=== PATIENT | male | born 1945 | race Caucasian/White ===

== ENCOUNTER 2019-01-10 07:55 | Emergency (ER) | payer OTHER ==
[~2019-01-10] VITALS: Ht 177.8 cm; Wt 113.4 kg
[2019-01-10 09:02] LABS: Basophils # (auto) 0.1 uL; Eosinophils # (auto) 0.2 uL; Eosinophils % (auto) 4.5 % (0.0-7.0); Hematocrit 45.9 % (41.0-53.0); Hemoglobin 15.6 g/dL (13.5-17.5); Lymphocytes # (auto) 1.3 uL; Lymphocytes % (auto) 23.5 % (10.0-50.0); Mean Corpuscular Hemoglobin 30.6 pg (28.0-32.0); Mean Corpuscular Volume 90.2 fL (80.0-100.0); Monocytes # (auto) 0.5 uL; Monocytes % (auto) 9.8 % (0.0-12.0); Neutrophils # (auto) 3.3 uL; Neutrophils % (auto) 61.2 % (37.0-80.0); Nucleated Red Blood Cells % 0.1 %; Platelet Count (auto) 165 10^3/uL (140-450); Red Blood Cells 5.09 10^6/uL (4.5-5.90); Red Cell Distribution Width 15.6 % (11.8-14.3); White Blood Cell 5.5 10^3/uL (4.4-10.8)
[2019-01-10] MEDS ORDERED: NITROGLYCERIN 0.4 MG SL TAB SL ONE (09:15)
[2019-01-10] MEDS ORDERED: ASPirin 81 mg TAB PO ONE (09:15)
[2019-01-10 09:17] LABS: Urine Bacteria FEW /hpf (None Seen); Urine Blood Negative /uL (Negative); Urine Mucus FEW (None Seen); Urine Specific Gravity 1.014 (1.001-1.035); Urine WBC 2 /hpf (0 - 3)
[2019-01-10 09:17] LABS: INR 0.98 (0.9-1.15); Partial Thromboplastin Time 25.1 sec (23.64-32.05)
[2019-01-10 09:37] LABS: Anion Gap 7 (5-15); Blood Urea Nitrogen 25 mg/dL (7-18); Calcium 9.1 mg/dL (8.5-10.1); Carbon Dioxide 24 mmol/L (21-32); Chloride 110 mmol/L (98-107); Glucose 90 mg/dL (74-106); Magnesium 2.8 mg/dL (1.6-2.6); Potassium 4.2 mmol/L (3.5-5.1); Sodium 141 mmol/L (136-145)
[2019-01-10 09:42] LABS: Alanine Aminotransferase 56 U/L (16-61); Alkaline Phosphatase 106 U/L (45-117); Aspartate Aminotransferase 35 U/L (15-37); BUN/Creatinine Ratio 18.5; Bilirubin, Total 0.9 mg/dL (0.2-1.0); GFR African American 67 mL/min; GFR Non-African American 55 mL/min; Total Protein 7.5 g/dL (6.4-8.2)
[2019-01-10 11:29] VITALS: BP 114/78
[2019-01-12] MEDS ORDERED: OMEG100062 PO (06:19)
[2019-01-12] MEDS ORDERED: B-COCAP36 OR (06:19)
[2019-01-12] MEDS ORDERED: CALCTAB5 PO (06:19)
[2019-01-12] MEDS ORDERED: ASPI81TA27 PO (06:19)
[2019-01-12] MEDS ORDERED: POTA1080 PO (06:19)
[2019-01-12] MEDS ORDERED: MULT-223 PO (06:19)
[2019-01-12] MEDS ORDERED: FAMO-12 PO (06:19)
[2019-01-12] MEDS ORDERED: DILT120C41 PO (06:19)
[2019-01-12] MEDS ORDERED: FURO40TA4 PO (06:19)
[2019-01-12] MEDS ORDERED: GLUC500T48 PO (06:19)
[2019-01-12] MEDS ORDERED: CHOL20007 PO (06:19)
== END 2019-01-10 11:53 | disposition home or self-care (01) ==
LOC: ER 07:55
DX: R07.89 Other chest pain (principal); R55 Syncope and collapse; I11.0 Hypertensive heart disease with heart failure; I50.9 Heart failure, unspecified; I48.91 Unspecified atrial fibrillation
CPT/HCPCS: 36415; 71045; 80053; 81001; 83735; 83880; 84484; 85025; 85610; 85730; 93005

== ENCOUNTER 2019-03-28 01:47 | Emergency (ER) | payer OTHER ==
[~2019-03-28] VITALS: Ht 177.8 cm; Wt 102.1 kg
[~2019-03-28 01:47] MED LIST: ASPI-404 PO; B-COCAP36 OR; CALCTAB5 PO; CHOL20007 PO; DILT120C41 PO; FAMO-12 PO; FURO40TA4 PO; GLUC500T48 PO; MULT-223 PO; OMEG100062 PO; POTA1080 PO
[2019-03-28 02:26] LABS: Basophils # (auto) 0.1 uL; Basophils % (auto) 1.3 % (0.0-2.0); Eosinophils # (auto) 0.3 uL; Eosinophils % (auto) 4.5 % (0.0-7.0); Hematocrit 39.5 % (41.0-53.0); Hemoglobin 13.3 g/dL (13.5-17.5); Lymphocytes # (auto) 1.2 uL; Lymphocytes % (auto) 19.1 % (10.0-50.0); Mean Corpuscular Hemoglobin 30.8 pg (28.0-32.0); Mean Corpuscular Hgb Conc. 33.6 g/dL (32.0-36.0); Mean Corpuscular Volume 91.6 fL (80.0-100.0); Monocytes # (auto) 0.5 uL; Monocytes % (auto) 8.4 % (0.0-12.0); Neutrophils # (auto) 4.2 uL; Neutrophils % (auto) 66.7 % (37.0-80.0); Platelet Count (auto) 181 10^3/uL (140-450); Red Blood Cells 4.31 10^6/uL (4.5-5.90); Red Cell Distribution Width 15.3 % (11.8-14.3); White Blood Cell 6.2 10^3/uL (4.4-10.8)
[2019-03-28 02:46] LABS: INR 1.12 (0.9-1.15); Partial Thromboplastin Time 30.3 sec (23.64-32.05)
[2019-03-28 02:49] LABS: Albumin 4.2 g/dL (3.4-5.0); Calcium 9.1 mg/dL (8.5-10.1); Potassium 4.6 mmol/L (3.5-5.1)
[2019-03-28 02:55] LABS: BUN/Creatinine Ratio 13.4; Bilirubin, Total 0.8 mg/dL (0.2-1.0); Total Protein 7.9 g/dL (6.4-8.2)
[2019-03-28 08:31] VITALS: BP 121/90
== END 2019-03-28 08:38 | disposition home or self-care (01) ==
LOC: ER 01:48
DX: R04.0 Epistaxis (principal); I48.91 Unspecified atrial fibrillation; I11.0 Hypertensive heart disease with heart failure; I50.9 Heart failure, unspecified; Z88.8 Allergy status to other drugs, medicaments and biological substances
CPT/HCPCS: 30901; 36415; 80053; 85025; 85610; 85730

== ENCOUNTER 2019-12-23 14:17 | Inpatient (IN) | payer OTHER ==
[~2019-12-23] VITALS: Ht 182.9 cm; Wt 103.1 kg
[~2019-12-23 14:17] MED LIST changes: -B-COCAP36 OR; +B-COCAP36 PO
[2019-12-23 14:53] LABS: Basophils # (auto) 0 10 ^3/uL (0-0.2); Basophils % (auto) 1.1 % (0.0-2.0); Eosinophils # (auto) 0.1 10 ^3/uL (0-0.8); Eosinophils % (auto) 3.2 % (0.0-7.0); Hematocrit 39.8 % (41.0-53.0); Hemoglobin 13.1 g/dL (13.5-17.5); Lymphocytes # (auto) 0.7 10 ^3/uL (0.4-5.4); Lymphocytes % (auto) 14.5 % (10.0-50.0); Mean Corpuscular Hemoglobin 29.6 pg (28.0-32.0); Mean Corpuscular Hgb Conc. 32.9 g/dL (32.0-36.0); Mean Corpuscular Volume 90.1 fL (80.0-100.0); Monocytes # (auto) 0.5 10 ^3/uL (0-1.3); Monocytes % (auto) 9.8 % (0.0-12.0); Neutrophils # (auto) 3.3 10 ^3/uL (1.6-8.6); Neutrophils % (auto) 71.4 % (37.0-80.0); Nucleated Red Blood Cells % 0.1 %; Platelet Count (auto) 142 10^3/uL (140-450); Red Blood Cells 4.42 10^6/uL (4.5-5.90); White Blood Cell 4.6 10^3/uL (4.4-10.8)
[2019-12-23] MEDS ORDERED: DOPamine 1600MCG/ML D5W 250 ML IV ONE (15:15)
[2019-12-23 15:22] LABS: Alanine Aminotransferase 70 U/L (16-61); Albumin 3.4 g/dL (3.4-5.0); Anion Gap 8 (5-15); Aspartate Aminotransferase 52 U/L (15-37); BUN/Creatinine Ratio 17.7; Blood Urea Nitrogen 36 mg/dL (7-18); Carbon Dioxide 25 mmol/L (21-32); Chloride 107 mmol/L (98-107); GFR African American 42 mL/min; GFR Non-African American 34 mL/min; Glucose 89 mg/dL (74-106); Potassium 4.2 mmol/L (3.5-5.1); Sodium 140 mmol/L (136-145)
[2019-12-23 15:26] LABS: Alkaline Phosphatase 109 U/L (45-117); Bilirubin, Total 0.6 mg/dL (0.2-1.0)
[2019-12-23] MEDS ORDERED: FUROSEMIDE 40 MG/4 ML VIAL IV ONE (16:45)
[2019-12-23] MEDS ORDERED: NITROGLYCERIN 0.4 MG SL TAB SL PRN (20:00)
[2019-12-23] MEDS: DOPamine 1600MCG/ML D5W 250 ML IV SCH (20:00)
[2019-12-23] MEDS ORDERED: MORPHINE SULF INJ 2 MG/ML SYRINGE 1ML IV PRN (20:00)
[2019-12-23 21:01] LABS: Urine Bacteria NONE SEEN /hpf (None Seen); Urine Blood Negative /uL (Negative); Urine Specific Gravity 1.006 (1.001-1.035); Urine WBC <1 /hpf (0 - 3)
[2019-12-24] MEDS: DOPamine 1600MCG/ML D5W 250 ML IV SCH ×3 (05:50→21:16)
[2019-12-24 07:12] LABS: Basophils # (auto) 0 10 ^3/uL (0-0.2); Basophils % (auto) 0.5 % (0.0-2.0); Eosinophils # (auto) 0.1 10 ^3/uL (0-0.8); Eosinophils % (auto) 1.7 % (0.0-7.0); Hematocrit 46.5 % (41.0-53.0); Hemoglobin 15.8 g/dL (13.5-17.5); Lymphocytes # (auto) 0.7 10 ^3/uL (0.4-5.4); Lymphocytes % (auto) 9.8 % (10.0-50.0); Mean Corpuscular Hemoglobin 30.1 pg (28.0-32.0); Mean Corpuscular Hgb Conc. 33.9 g/dL (32.0-36.0); Monocytes # (auto) 0.7 10 ^3/uL (0-1.3); Monocytes % (auto) 9.6 % (0.0-12.0); Neutrophils # (auto) 5.5 10 ^3/uL (1.6-8.6); Neutrophils % (auto) 78.4 % (37.0-80.0); Nucleated Red Blood Cells % 0.4 %; Platelet Count (auto) 164 10^3/uL (140-450); Red Blood Cells 5.23 10^6/uL (4.5-5.90); Red Cell Distribution Width 15.9 % (11.8-14.3)
[2019-12-24 07:16] LABS: BUN/Creatinine Ratio 16.3; Calcium 9.1 mg/dL (8.5-10.1); INR 1.17 (0.9-1.15); Partial Thromboplastin Time 29.8 sec (23.64-32.05); Potassium 3.2 mmol/L (3.5-5.1)
[2019-12-24 07:21] LABS: Bilirubin, Total 1.4 mg/dL (0.2-1.0); Total Protein 8.3 g/dL (6.4-8.2)
[2019-12-24] MEDS ORDERED: ACETAMINOPHEN 500 MG TAB PO ONE (08:15)
[2019-12-24] MEDS: FAMOTIDINE 20 MG TAB PO SCH (09:27)
[2019-12-24] MEDS: ASPirin-EC 81 mg tab PO SCH (09:50)
[2019-12-24] MEDS ORDERED: POTASSIUM EFFERVESENT TAB 25 MEQ PO ONE (10:30)
--- NOTE | 2019-12-24 14:35 | NUR ---
1425 12/24/19 - Per Dr Shagufta Rausch this patient is not stable or transfer to [facility], pt on dopamine drip. Addendum: 12/24/19 at 1455 by Charleen Alegria RN 1455 12/24/19 Per, Dr Rausch this patient is not stable for transfer to [facility], pt on dopamine drip.
[2019-12-24] MEDS ORDERED: MAGNESIUM SULFATE 1GM/100ML 100 ML IV ONE (15:15)
[2019-12-24] MEDS ORDERED: ACETAMINOPHEN 325 MG TAB PO PRN (20:00)
[2019-12-24] MEDS ORDERED: hydrALAZINE HCL 25 MG TAB PO ONE (20:00)
[2019-12-24] MEDS ORDERED: hydrALAZINE HCL 25 MG TAB PO SCH (22:00)
[2019-12-24 22:30] LABS: Calcium 9.3 mg/dL (8.5-10.1); Magnesium 2.8 mg/dL (1.6-2.6); Potassium 3.7 mmol/L (3.5-5.1)
[2019-12-24 22:32] LABS: BUN/Creatinine Ratio 15.1
[2019-12-25] VITALS (18 sets, daily range): BP systolic 70–168; BP diastolic 41–94
[2019-12-25] MEDS: DOPamine 1600MCG/ML D5W 250 ML IV SCH ×3 (03:16→20:57)
[2019-12-25 05:37] LABS: Albumin 3.8 g/dL (3.4-5.0); BUN/Creatinine Ratio 14.7; Calcium 9.3 mg/dL (8.5-10.1); Magnesium 2.8 mg/dL (1.6-2.6)
[2019-12-25 05:40] LABS: Bilirubin, Total 1.6 mg/dL (0.2-1.0); Total Protein 8.6 g/dL (6.4-8.2)
[2019-12-25] MEDS ORDERED: LIDOCAINE 2%HCL (LOCAL ANESTH.) INJ 20ML MDV ONE (09:51)
[2019-12-25] MEDS: ASPirin-EC 81 mg tab PO SCH (10:00)
[2019-12-25] MEDS: FAMOTIDINE 20 MG TAB PO SCH (10:00)
[2019-12-25] MEDS ORDERED: VANCOMYCIN HCL 1000 MG VL ONE (10:10)
[2019-12-25] MEDS ORDERED: VANCOMYCIN 1GM/250ML 250 ML IV ONE (10:11)
[2019-12-25] MEDS ORDERED: fentaNYL CITRATE 100 MCG/2 ML VL ONE (10:36)
[2019-12-25] MEDS ORDERED: MIDAZOLAM HCL 1MG/1ML-2 ML VIAL ONE (10:37)
[2019-12-25] MEDS ORDERED: FUROSEMIDE 20 MG/2 ML VIAL ONE (11:18)
[2019-12-25] MEDS ORDERED: SODIUM CHLORIDE 0.9% 1,000 ML IV SCH (11:53)
[2019-12-25] MEDS: ceFAZolin 1GM/50ML 50 ML IV SCH ×2 (12:00→19:45)
--- NOTE | 2019-12-25 14:03 | NUR ---
1355 12/25/19 - contacted [facility] at [phone] spoke with disease case manager rn Faizan who confirmed receipt of all faxed clinicals regarding patient's pending transfer to [facility] ICU. I requested authorization for continued stay for pt for yesterday due to patient's unstable for transport (pt on drip, low heart and need for pacemaker) Faizan stated that he would speak with the Home Health Assistant regarding this matter.
[2019-12-25] MEDS ORDERED: ONDANSETRON HCL 4 MG/2 ML VIAL IV PRN (14:45)
[2019-12-25] MEDS: SODIUM CHLORIDE 0.9% 1,000 ML IV SCH (14:45)
--- NOTE | 2019-12-25 15:24 | NUR ---
1520 12/25/19 - Contacted by [facility] skilled nursing case manager Faizan who stated there were no available ICU beds in [facility]. Faizan also provided approved authorization [id number]. Faizan also stated he would try again tomorrow for ICU bed at a [facility]
--- NOTE | 2019-12-25 18:05 | NUR ---
RECEIVED PATIENT FROM THE DENTAL TECHNOLOGY ADVISOR STATUS POST PACEMAKER INSERTION TO THE LEFT UPPER CHEST WITH SAFE GUARD OVER THE INCISION, DOPAMINE AT 5.4MCG/KG/MIN AND NS AT 100ML/HR BOTH INFUSING INTO THE LFA BY THE IV PUMP, POSADAS TO GRAVITY, A/O TIMES 4, O2 AT 3L BY N/C, SALINE LOCK TO THE RAC INTACT AND PATENT, NO COMPLAINTS EXCEPT READY TO GO HOME, WILL CONTINUE TO MONITOR AND GIVE REPORT TO THE NEXT SHIFT
--- NOTE | 2019-12-25 20:00 | NUR ---
SHIFT OPENING NOTE RECEIVED PATIENT AWAKE, ALERT AND ORIENTED X4. BOIS FORTE. NO SOB, DISTRESS OR PAIN NOTED. ON 3L N/C. STATUS POST PACEMAKER PLACEMENT. LEFT UPPER CHEST WITH INFLATED SAFEGUARD. NURSE TO START TO DEFLATE AT 1200 TOMMORROW PER MD ORDER. NO BLEEDING NO HEMATOMA NOTED. ICE BACK ON IT. SLING TO LEFT ARM. INSTRUCTED NO WEIGHT BEARING TO LEFT ARM. PATIENT IS AWARE. DOPAMINE INFUSING AT 5.4 MCGs. POSADAS CATH DRAINING YELLOW URINE TO GRAVITY. NS INFUSING AT 100 ML/H. PHYSICAL ASSESSMENT COMPLETED, SEE INTERVENTIONS. INSTRUCTED ON POC AND TO CALL FOR ASSIST NEEDED. BED IS IN THE LOWEST POSITION WITH SIDE RAILS UP X2, CALL LIGHT IS WITHIN REACH.
--- NOTE | 2019-12-25 20:30 | NUR ---
ASSISTED PATIENT UP TO TOILET PATIENT NEEDS TO HAVE A BOWEL MOVEMENT INSTRUCTED TO CALL WHEN DONE FOR ASSISTANCE BACK TO BED. VERBALIZED UNDERSTANDING
--- NOTE | 2019-12-25 20:50 | NUR ---
BACK TO BED SAFELY.
[2019-12-26] VITALS (87 sets, daily range): BP systolic 51–174; BP diastolic 24–103
--- NOTE | 2019-12-26 01:08 | NUR ---
ROUNDS PATIENT IS LAYING IN BED SLEEPING. NO SOB, DISTRESS OR PAIN NOTED. ON 2L N/C. WILL CONTINUE TO CLOSELY MONITOR.
[2019-12-26 04:08] LABS: Basophils # (auto) 0 10 ^3/uL (0-0.2); Basophils % (auto) 0.6 % (0.0-2.0); Eosinophils # (auto) 0.2 10 ^3/uL (0-0.8); Eosinophils % (auto) 3.7 % (0.0-7.0); Hematocrit 46.8 % (41.0-53.0); Hemoglobin 15.6 g/dL (13.5-17.5); Lymphocytes # (auto) 0.9 10 ^3/uL (0.4-5.4); Lymphocytes % (auto) 13.4 % (10.0-50.0); Mean Corpuscular Hemoglobin 29.9 pg (28.0-32.0); Mean Corpuscular Hgb Conc. 33.4 g/dL (32.0-36.0); Mean Corpuscular Volume 89.5 fL (80.0-100.0); Monocytes # (auto) 0.7 10 ^3/uL (0-1.3); Monocytes % (auto) 11.3 % (0.0-12.0); Neutrophils # (auto) 4.7 10 ^3/uL (1.6-8.6); Nucleated Red Blood Cells % 0.1 %; Platelet Count (auto) 155 10^3/uL (140-450); Red Blood Cells 5.23 10^6/uL (4.5-5.90); Red Cell Distribution Width 15.7 % (11.8-14.3); White Blood Cell 6.7 10^3/uL (4.4-10.8)
[2019-12-26] MEDS: ceFAZolin 1GM/50ML 50 ML IV SCH (04:25)
[2019-12-26] MEDS: SODIUM CHLORIDE 0.9% 1,000 ML IV SCH ×2 (04:25→10:45)
[2019-12-26 04:35] LABS: Albumin 3.1 g/dL (3.4-5.0); BUN/Creatinine Ratio 18.1; Calcium 8.5 mg/dL (8.5-10.1); Potassium 4.3 mmol/L (3.5-5.1)
[2019-12-26 04:37] LABS: Bilirubin, Total 1.1 mg/dL (0.2-1.0); Total Protein 7.1 g/dL (6.4-8.2)
[2019-12-26 04:38] LABS: INR 1.14 (0.9-1.15); Partial Thromboplastin Time 29.2 sec (23.64-32.05)
--- NOTE | 2019-12-26 07:15 | NUR ---
END OF SHIFT REPORT GIVEN AND CARE ENDORSED TO ARI MORRISSEY.
--- NOTE | 2019-12-26 07:38 | NUR ---
RECEIVED PATIENT SITTING UP IN HE BED, AWAKEN TO NAME BEING CALLED, O2 AT 2L BY N/C, HELPED PATIETN PUT HIS HEARING AID INTO THE LEFT EAR, SLING TO THE LEFT ARM, PACEMAKER TO THE LEFT CHEST WITH DRESSING AND SAFEGUARD CLEAN INTACT, NO BLEEDING SEEN, RAC SALINE LOCK FLUSHED AND PATENT, LFA WITH NS AT 100ML/HR AND DOPAMINE AT 5.4MG/KG/MIN BOTH INFUSING BY THE IV PUMP, POSADAS TO GRAVITY, NO COMPLAINTS OF PAIN
--- NOTE | 2019-12-26 08:30 | NUR ---
SITTING UP IN BE EATING HIS BREAKFAST, NO HELP NEEDED
--- NOTE | 2019-12-26 09:30 | NUR ---
SITTING UP IN THE BED WITH HIS EYES CLOSED NO COMPLAINTS, DRESSING TO THE CHEST DRY AND SLING STILL TO THE LEFT ARM
--- NOTE | 2019-12-26 09:50 | NUR ---
DR ALLEN IN TO SEE THE PATIETN AND STATED TO TRY AND WEAN THE PATIENT OFF THE DOPAMINE DRIP AND DECREASE THE NS TO 70ML/HR
[2019-12-26] MEDS: FAMOTIDINE 20 MG TAB PO SCH (10:09)
[2019-12-26] MEDS: ASPirin-EC 81 mg tab PO SCH (10:09)
--- NOTE | 2019-12-26 10:10 | NUR ---
EXPLAIN MEDICATIONS TO THE PATIENT REGARDING THE DOSAGE, USAGE AND THE SIDE EFFECTS, VERBALIZED HE UNDERSTOOD AND MEDS GIVEN ORDERED,
--- NOTE | 2019-12-26 10:10 | NUR ---
PATIENT TALKING TO HIS DAUGHTER ON THE PHONE, TURNED THE DOPAMINE DOWN TO 5.0MCG/KG/MIN TO TRY AND WEAN HIM OFF THE DRIP, EXPLAIN TO THE PATIENT
--- NOTE | 2019-12-26 10:15 | NUR ---
PATIENT STILL TALKING ON THE PHONE STILL BUT STARTING GETTING DIZZY AND SWEATING CHECKED HIS B/P AND WAS 51/24, TURNED THE DOPAMINE BACK UP TO 5.4MCG/KG/MIN AND LOWERED THE HEAD OF BED, PATIENT IS NOT ABLE TO TOLERATE DECREASING THE DOPAMINE AT THE IS TIME
[2019-12-26] MEDS: DOPamine 1600MCG/ML D5W 250 ML IV SCH (10:24)
--- NOTE | 2019-12-26 10:30 | NUR ---
B/P 108/60 AND PATIENT STATES HE FEELS BETTER HR INT HE 70'S AND PACED
--- NOTE | 2019-12-26 11:30 | NUR ---
LISTENING TO MUSIC FROM HIS PHONE, STATED HE FEELS OKAY
--- NOTE | 2019-12-26 12:30 | NUR ---
NO DECREASE IN B/P, SITTING UP IN THE BED, STATES HE IS DOING OKAY
--- NOTE | 2019-12-26 12:31 | NUR ---
1230 12/26/19 I faxed transfer order and Notice Regarding Post Stabilization to [facility]-document scanned into [employer]. I faxed today's MD progress notes, labs, vitals and medication list to [facility].
--- NOTE | 2019-12-26 13:03 | NUR ---
assessment Patient is a 74 year old male who is alert and oriented. Per patients Ania prior to admission patient lived home with her and was independent. Per Ania patient will return home with her on discharge. Ania informed me patient has a fww for home use. Per Ania patient was having chest pain and a low heart rate and she called 911. Patients PCP is Dr Allen at the [facility]. Ania was informed that patient may be discharging home today. Ania has no safety issues regarding patient returning home on discharge. Ania verbalized understanding and agreed to discharge plan home. Addendum: 12/26/19 at 1307 by Kylah MCKENNA Amended: Links added.
--- NOTE | 2019-12-26 13:28 | NUR ---
1320 12/26/19 I spoke with [employer] Analyst Lavonne-she did receive today's transfer order and clinical information. I provided her with contact information for Dr. Rausch as well as the nurse's station. Per Lavonne-she will let me know if they have a bed available.
--- NOTE | 2019-12-26 13:52 | NUR ---
SPOKE WITH ROCIO AT [facility] AND SHE SPOKE WITH THE PATIENT AND BECAUSE THEY HAVE NO BEDS CLOSE, HE STATES HE DOESN'T WANT TO BE TRANSPORTED LONG DISTANCE AND SHE TOLD HIM HE COULD STAY HERE
--- NOTE | 2019-12-26 13:54 | NUR ---
REMOVED THE AIR FROM THE SAFEGUARD ON THE CHEST WILL CONTINUE TO MONITOR , ROBERT ALSO GIVEN PRUNE JUICE BECAUSE HE STATES HE FEELS A LITTLE CONSTIPATED AND HASN'T HAD A BM FOR 3 DAYS;
--- NOTE | 2019-12-26 13:55 | NUR ---
1350 12/26/19 I received a call from [facility] [employer] And Handicapper Lavonne letting me know that they have no ICU beds available at either [place] or [place]-inpatient authorization is extended until 12/27/19 1000.
--- NOTE | 2019-12-26 14:19 | NUR ---
NO BLEEDING FROM THE PACEMAKER SITE
--- NOTE | 2019-12-26 15:10 | NUR ---
GOTTEN UP TO THE BS WITH HELP, B/P , BEFORE GETTING UP AND THEN AFTER GETTING ON THE BSC, STATES HE FELT A LITTLE DIZZY RECHECKED 85/56, WAITED 2 MINUTES STATED HE FELT BETTER RECHECKED 98/60, STATES THE BEING DIZZY ONLY LAST ABOUT A MINUTE, CONTINUE TO MONITOR Addendum: 12/26/19 at 1540 by Yamilex Garcia RN FIRST B/P WAS
--- NOTE | 2019-12-26 15:46 | NUR ---
SPOKE WITH DR ALLEN AND EXPRESS TO HER ABOUT THE B/P DECREASING WHEN THE PATIENT GETS UP AND WHEN I TRIED TO DECREASE THE RATE EARLIER TODAY, STATED TO LET DR CALHOUN KNOW WHEN HE COMES AND SEES THE PATIENT
--- NOTE | 2019-12-26 17:29 | NUR ---
SPOKE TO DR CALHOUN AND STATED TO START ON FLORINEF FOR HIS HYPOTENSION
[2019-12-26] MEDS ORDERED: FLUDROCORTISONE ACETATE 0.1 MG TAB PO ONE (17:45)
--- NOTE | 2019-12-26 18:06 | NUR ---
WAITING FOR THE NEW MEDS TO BE PUT IN THE EMR, DECREASED THE DOPAMINE TO 4.5MCG/KG/MIN B/P 130/81
--- NOTE | 2019-12-26 18:39 | NUR ---
NEW MEDS GIVEN ORDERED, SITTING UP IN THE BED EATING HIS DINNER, A/O TIMES4, O2 BY R/A, POSADAS TO GRAVITY, DOPAMINE AT 4.5MCG/KG/MIN AND NS AT 70ML/HR BOTH INFUSING INTO THE LFA BY THE IV PUMP, SALINE LOCK TO THE RAC INTACT, PACEMAKER SITE IN THE LEFT UPPER CHEST DRESSING DRY AND INTACT, NO BLEEDING TO THE SITE, SAFE GUARD WAS OVER THE DRESSING AND IT WAS DEFLATED, NO COMPLAINTS OF PAIN HE SAYS EXCEPT WHEN HE FORGETS AND MOVES THE LEFT ARM WHICH IS IN A SLING, WILL CONTINUE TO MONITOR AND GIVE REPORT TO THE NEXT SHIFT
--- NOTE | 2019-12-26 19:30 | NUR ---
OPENING NOTE REPORT RECEIVED FROM LOUISE MORRISSEY. PATIENT A/OX4, ON CONTINUOUS MONITORS, HEART RATE PACED IN THE 80'S, SPO2 AT 95% ON ROOM AIR. PATIENT IS HARD OF HEARING, ABLE TO VERBALIZE ALL NEEDS. PATIENT HAS LEFT FOREARM IV 18G RUNNING DOPAMINE GTT AT 4.5MCG/KG/MIN, LAST BP 120/77. PER MD ORDER, OK TO TITRATE GTT TOLERATED BY PATIENT.IV TO LEFT FOREARM ALSO RUNNING NS AT 70ML/HR. SEE IV SPREADSHEET.LEFT UPPER CHEST PACEMAKER SITE, WITH INTACT DRESSING THAT IS C/D/I. SLING TO LEFT ARM IN PLACE.PHYSICAL ASSESSMENT DONE-SEE INTERVENTIONS. POSADAS DRAINING TO GRAVITY. POC DISCUSSED WITH PATIENT, ALL QUESTIONS ANSWERED. FALL PRECAUTIONS IN PLACE, CALL LIGHT WITHIN REACH.
--- NOTE | 2019-12-26 20:20 | NUR ---
HYPOTENSION PATIENT AMBULATED TO TOILET WITH STANDBY ASSIST. BP DECREASED FROM 114/76 DOWN TO 95/47 FROM BED TO TOILET. PATIENT ASSISTED BACK TO BED AFTER BM, BP REASSESSED AND INCREASED TO 106/70. DOPAMINE WAS NOT ADJUSTED. DOPAMINE STILL RUNNING AT 4.5MCG/KG/MIN
--- NOTE | 2019-12-26 22:58 | NUR ---
HYPOTENSION PATIENT ONCE AGAIN BECAME HYPOTENSIVE WHEN GETTING UP FROM THE BED TO USE THE TOILET. BP BEFORE GETTING OUT OF BED WAS 131/80. BP WHILE SITTING ON EDGE OF BED WAS 104/69. ONCE PATIENT AMBULATED TO TOILET AND SAT DOWN, BP ASSESSED AND WAS 88/49. PATIENT BECAME SYMPTOMATIC AND STATED THAT HE FELT DIZZY. BP RECHECKED AFTER TWO MINUTES OF SITTING ON THE TOILET AND WAS 98/58, PATIENT STILL FELT DIZZY. PATIENT ASKED TO BE GIVEN SOME TIME ON THE TOILET TO TRY AND HAVE A BM. WHILE SITTING ON TOILET BP RECHECKED AND WAS 75/49. PATIENT STILL ALERT AND STATES TO STILL FEEL DIZZY. PATIENT ASSISTED BACK INTO BED WITH STANDBY ASSISTANCE. ONCE BACK INTO BED, BP INCREASED TO 133/89. PATIENT DENIED ANY MORE DIZZINESS. DOPAMINE GTT AT 4MCG/KG/MIN AT THIS TIME.
[2019-12-27] VITALS (92 sets, daily range): BP systolic 53–155; BP diastolic 32–94
[2019-12-27] MEDS: DOPamine 1600MCG/ML D5W 250 ML IV SCH ×2 (01:23→12:19)
--- NOTE | 2019-12-27 03:25 | NUR ---
AM CARE PATIENT GIVEN COMPLETE LINEN CHANGE. PATIENT WIPES DOWN WITH CHG WIPES. WARM SOAPY WATER WASH CLOTH USED TO CLEANSE PATIENT FACE AND NECK, PATIENT EXPRESSED GRATITUDE.
--- NOTE | 2019-12-27 03:50 | NUR ---
HYPOTENSION PATIENT HAD ANOTHER HYPOTENSIVE EPISODE WHILE GETTING UP TO USE COMMODE. BP DECREASED DOWN TO 53/32 AFTER WALKING A FEW STEPS TO TOILET. PATIENT BECAME SYMPTOMATIC, STATED HE FELT DIZZY AND LIGHT HEADED. DOPAMINE GTT INCREASED BACK UP TO 3MCG/KG/MIN. BP REASSESSED AND BACK UP TO 87/53, PATIENT STATES HE IS STARTING TO FEEL BETTER. PATIENT ABLE TO HAVE A LARGE BM, THEN WAS ASSISTED BACK TO BED. ONCE BACK IN BED, BP REASSESSED AND AT 116/76. CURRENT DOPAMINE GTT RATE AT 3MCG/KG/HR. WILL CONTINUE TO MONITOR CLOSELY.
[2019-12-27] MEDS: SODIUM CHLORIDE 0.9% 1,000 ML IV SCH ×2 (04:42→17:37)
[2019-12-27 04:43] LABS: Potassium 3.7 mmol/L (3.5-5.1)
[2019-12-27 04:48] LABS: Albumin 2.9 g/dL (3.4-5.0); BUN/Creatinine Ratio 18.5; Calcium 8.2 mg/dL (8.5-10.1)
[2019-12-27 04:51] LABS: Bilirubin, Total 0.8 mg/dL (0.2-1.0); Total Protein 6.4 g/dL (6.4-8.2)
--- NOTE | 2019-12-27 07:09 | NUR ---
CLOSING PATIENT STILL RUNNING DOPAMINE GTT AT 2.5MCG/KG/MIN. UNABLE TO STOP GTT DUE TO SEVERE HYPOTENSION WHEN GETTING UP. SEE IV SPREAD SHEET FOR DETAILS. CARE ENDORSED TO DAYSKAUSHALFT YUNI WARD
--- NOTE | 2019-12-27 08:00 | NUR ---
Opening Shift Note Assumed care of patient, awake and alert. No S/S of distress/SOB or pain. See interventions fro complete assessment. Sling on LT arm, patient educated on no reaching and lifting with LT arm. Bed locked on low position, side rails up x2, bed alarms on at all times, call jose within reach, instructed on POC and to call for assist PRN, will continue to monitor for changes Q1hr and PRN.
[2019-12-27] MEDS: FLUDROCORTISONE ACETATE 0.1 MG TAB PO SCH ×2 (09:58→20:56)
[2019-12-27] MEDS: FAMOTIDINE 20 MG TAB PO SCH ×2 (09:58→20:56)
[2019-12-27] MEDS: ASPirin-EC 81 mg tab PO SCH (09:58)
--- NOTE | 2019-12-27 10:55 | NUR ---
Assisted patient out of bed to toilet @ 1030, fall precautions in place, SBP dropped to 80's. Assisted back to bed, SBP went up to 120's to 140's. Will continue to monitor.
--- NOTE | 2019-12-27 11:26 | NUR ---
Nutrition Assessment Notes Please refer to link for full assessment notes. [employer] needs: 2111-0803 kcals (17-20 kcal/kgBW) Est Protein needs: 121-162 gms/day (1.5-2.0 gm/kgIBW) d/t pt adiposity Will continue to monitor and reassess prn. Addendum: 12/27/19 at [address] Amended: Links added.
--- NOTE | 2019-12-27 12:51 | NUR ---
Dr Mcdaniel at bedside, updated on patient's status, verbalized understanding. Patient seen and examined. Will carry out new orders.
--- NOTE | 2019-12-27 17:48 | NUR ---
Received call from [facility] [place], needed information for transfer provided. Awaiting ICU bed from [facility] or [place].
--- NOTE | 2019-12-27 19:30 | NUR ---
Opening Shift Note: A&Ox4, resting in bed. Room air, pain level 0/10, and at baseline patient ambulates independently without assistive devices; currently SBA to toilet. Bed locked in lowest position, side rails up x2, call light within reach, and bed alarm on for patient safety. Kwon inserted on 12/25/19 for strict I/O. IV: 18 g in left forearm inserted on 12/23/19 running dopamine @ 2; NS @ 70 ml/hr. Patient is s/p pacemaker insertion with Dr. Paulino on 12/25/19: left upper chest dressing CDI/arm in sling. Patient aware of left arm precautions s/p pacemaker insertion. 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 POC discussed and questions answered. Pending transfer to [facility] when bed available. Will continue to round and reposition prn. Addendum: 12/27/19 at 2345 by SUNG PAUL RN Dopamine @ 1 mcg
[2019-12-28] VITALS (35 sets, daily range): BP systolic 109–149; BP diastolic 72–98
--- NOTE | 2019-12-28 00:52 | NUR ---
Kwon catheter removed per nurse-driven protocol. Patient requesting for catheter to be removed. No prostate history per patient and EMR. 1000 ml emptied before removal.
--- NOTE | 2019-12-28 09:00 | NUR ---
PT. ASSISTED TO TOILET, STANDBY ASSIST, STEADY GAIT. NO LIGHTHEADNESS OR DIZZYNESS. SBP 140'S. DOPAMINE GTT. OFF. PT. STATED HE HAD BM.
--- NOTE | 2019-12-28 09:25 | NUR ---
DR. Anali CASTELAN Provider/Hospitalist at bedside. GAVE UPDATE ON PT. NEW ORDERS RECEIVED.
--- NOTE | 2019-12-28 09:30 | NUR ---
SLAB LIFTING ENGINEER FROM [facility] CALLED. GAVE UPDATE ON PT. SPOKE WITH PT. ON THE PHONE.
--- NOTE | 2019-12-28 10:00 | NUR ---
DR. PENALOZA Provider/Hospitalist at bedside. GAVE UPDATE ON PT. NEW ORDERS RECEIVED. Addendum: 12/28/19 at 1057 by Beronica Bello RN WRONG DOCTOR CHARTED.
[2019-12-28] MEDS: ASPirin-EC 81 mg tab PO SCH (10:04)
[2019-12-28] MEDS: FAMOTIDINE 20 MG TAB PO SCH (10:05)
[2019-12-28] MEDS: FLUDROCORTISONE ACETATE 0.1 MG TAB PO SCH (10:46)
[2019-12-28] MEDS: DOPamine 1600MCG/ML D5W 250 ML IV SCH ×2 (11:00→12:59)
--- NOTE | 2019-12-28 13:56 | NUR ---
Called/paged UNIQUE [facility] called re:[IF OK TO D'C PT. HM. TODAY, OFF DOPAMINE GTT. SINCE MIDNIGHT LAST NIGHT, SBP-120'S-140'S, NO LIGHTHEADNESS OR DIZZYNESS]. CALLED DR. CALHOUN ON CELL PHONE AND SAID PT. CAN GO HM. FROM HIS STANDPOINT. DR. Anali CASTELAN WILL WRITE ORDERS. Continue care.
--- NOTE | 2019-12-28 14:00 | NUR ---
DR. Anali CASTELAN Provider/Hospitalist at bedside. OK FOR PT. TO BE D'C'D HM. TODAY. WROTE D'C ORDER HM. AND RX. FOR PT.
--- NOTE | 2019-12-28 15:15 | NUR ---
ALL D'C INFORMATION GIVEN TO PT. AND HANDOUTS THAT WERE PRINTED. RX. GIVEN TO PT. AND INSTRUCTED PT. TO START TOMORROW, PT. ALREADY RECEIVED TODAY'S DOSE. CONTINUE MEDICATIONS PREVIOUSLY TAKING AT HM. NO HM. MEDS IN PHARMACY. NO BELONGINGS IN [facility]. PT. HAS ALL BELONGINGS IN . IS PICKING UP PT. D'C'D. IV H.L. LFA WITH CANULA INTACT, APPLIED 2X2'S AND COBAN, NO BLEEDING.
--- NOTE | 2019-12-28 15:23 | NUR ---
PT. TAKEN OUT TO CAR VIA W/C BY AAYUSH ENCISO. PICKING UP PT. BELONGINGS WITH PT.
== END 2019-12-28 15:23 | disposition home or self-care (01) | DRG 242 ==
LOC: EDBD 14:17 → ER 14:17 → TELE 14:18 → ICU WEST 12-25 17:59
PROVIDERS: ADMIT Nurse Practitioner Acute Care; ATTEND Internal Medicine
PROC: 0JH606Z Insertion of Pacemaker, Dual Chamber into Chest Subcutaneous Tissue and Fascia, Open Approach (ICD-10-PCS; principal; 2019-12-25)
PROC: 02H63JZ Insertion of Pacemaker Lead into Right Atrium, Percutaneous Approach (ICD-10-PCS; 2019-12-25)
PROC: 02HK3JZ Insertion of Pacemaker Lead into Right Ventricle, Percutaneous Approach (ICD-10-PCS; 2019-12-25)
DX: I49.5 Sick sinus syndrome (principal); N17.0 Acute kidney failure with tubular necrosis; D68.59 Other primary thrombophilia; I13.0 Hypertensive heart and chronic kidney disease with heart failure and stage 1 through stage 4 chronic kidney disease, or unspecified chronic kidney disease; I50.22 Chronic systolic (congestive) heart failure; N18.3 Chronic kidney disease, stage 3 (moderate); I25.10 Atherosclerotic heart disease of native coronary artery without angina pectoris; E66.9 Obesity, unspecified; I48.0 Paroxysmal atrial fibrillation; E78.5 Hyperlipidemia, unspecified; E87.6 Hypokalemia; E78.00 Pure hypercholesterolemia, unspecified; I95.9 Hypotension, unspecified; I45.5 Other specified heart block; Z68.30 Body mass index [BMI] 30.0-30.9, adult; I25.2 Old myocardial infarction; Z88.8 Allergy status to other drugs, medicaments and biological substances; Z79.01 Long term (current) use of anticoagulants; Z79.899 Other long term (current) drug therapy; Z87.891 Personal history of nicotine dependence
CPT/HCPCS: 33208; 36415; 51702; 71045; 80048; 80053; 80162; 81001; 82962; 83735; 83880; 84443; 84484; 85025; 85610; 85730; 86850; 86900; 86901; 87081; 93005; 93306; 99152; 99153; G0378; J0690; J2250